=== PATIENT | male | born 1995 | race American Indian/Alaskan Native ===

== ENCOUNTER 2016-06-21 06:27 | Emergency (ER) | payer OTHER ==
[2016-06-21 06:57] VITALS: BP 124/72
--- NOTE | 2016-06-21 09:17 | Emergency Department Report ---
HPI - General Chief Complaint: Sore Throat Time Seen by Provider: 06/21/16 09:07 - HPI HPI: Patient here reports sore throat 2 days. Reports chills. She says she got sick from her son who had sore throat. Denies any nausea or vomiting. Sore throat is 5-7 out of 10. Denies any drooling or difficulty breathing. Denies any chest pain or shortness of breath. No [id number] medication taken. ED Past Medical Hx - Past Medical History Previous Medical History?: No - Surgical History Past Surgical History?: No - Family History Family history: no significant - Social History Smoking Status: Current Every Day Smoker Substance Use Type: None, Marijuana - Medications Home Medications: Home Medications Medication Instructions Recorded Confirmed Last Taken Type Amoxicillin [Amoxicillin TAB] 875 mg PO BID #20 tablet 06/21/16 Unknown Rx Ibuprofen [Motrin] 600 mg PO Q8H PRN #15 tablet 06/21/16 Unknown Rx ED Review of Systems ROS: Stated complaint: SORE THROAT Other details as noted in HPI Comment: All other systems reviewed and negative Constitutional: chills, fever ENT: throat pain. denies: ear pain, congestion Respiratory: no symptoms reported Cardiovascular: denies: chest pain, palpitations, edema, syncope Gastrointestinal: denies: abdominal pain, nausea, vomiting, diarrhea Musculoskeletal: denies: back pain, arthralgia Skin: denies: rash Neurological: denies: headache, weakness, numbness, paresthesias, confusion, abnormal gait Physical Exam - Physical Exam Vital Signs: Vital Signs 06/21/16 06:56 Temperature 98.7 F Pulse Rate 78 Respiratory 18 Rate Blood Pressure 124/72 [Left] O2 Sat by Pulse 100 Oximetry General: This is a 20-year-old male well-nourished well-developed in no acute distress. Physical Exam: Head: [Normocephalic atraumatic Mouth: Moist, positive pharyngeal exudate and erythema. Uvula is midline and oral airway is patent. No gingival enlargement or dental tenderness. No facial swelling. No peritonsillar abscesses. Neck: Supple, no C-spine tenderness, no tracheal deviation. Nontender to palpate. no adenopathy Ears: Bilateral TMs congested without erythema .bilateral EAC without any redness swelling or drainage Eyes: Bilateral pupils equal and reactive to light, bilateral EOM intact. Bilateral sclera and conjunctiva without injection. Normal accommodation Nose: Mucosa moist, positive congestion no erythema. Positive clear drainage. maxillary and frontal sinus non-tender to palpate. Lungs:Clear to auscultate bilaterally no rhonchi wheezes or rales. Normal work of breathing extremity; No CCE. +2 pulses. No neurovascular compromise Cardiovascular: S1-S2, regular rate rhythm. No murmurs. Skin: clean Dry and intact no rash no lesions Psych: Normal mood and behavior ED Course Vital Signs 06/21/16 06:56 Temperature 98.7 F Pulse Rate 78 Respiratory 18 Rate Blood Pressure 124/72 [Left] O2 Sat by Pulse 100 Oximetry ED Medical Decision Making - Medical Decision Making ED course: Patient here for sore throats and diagnosed with strep throat. Patient voiced understanding of discharge instruction and treatment plan. Discharged home with prescription for amoxicillin and ibuprofen and to follow- up with primary care. Critical care attestation.: If time is entered above; I have spent that time in minutes in the direct care of this critically ill patient, excluding procedure time. ED Disposition Clinical Impression: Exudative pharyngitis Disposition: DISCHARGED TO HOME OR SELFCARE Is pt being admited?: No Condition: Stable Instructions: Pharyngitis (ED), Strep Throat (ED) Prescriptions: Amoxicillin [Amoxicillin TAB] 875 mg PO BID #20 tablet Ibuprofen [Motrin] 600 mg PO Q8H PRN #15 tablet PRN Reason: Pain Referrals: PRIMARY CARE,MD [Primary Care Provider] - 3-5 Days
== END 2016-06-21 09:59 | disposition home or self-care (01) ==
LOC: ED 06:27
DX: J02.8 Acute pharyngitis due to other specified organisms (principal)
CPT/HCPCS: 99282